=== PATIENT | female | born 1995 ===

== ENCOUNTER 2017-10-26 12:42 | Emergency (ER) | payer MEDICAID ==
[2017-10-26 12:58] VITALS: PULSE 78; O2SAT 99
[2017-10-26] MEDS ORDERED: Clindamycin 600mg/50ml D5W 600 MG/50 ML VIAL IVPB ONE (13:26)
[2017-10-26 14:11] LABS: BASO # 0.1 K/uL (0.0-0.2); BASO % 0.6 % (0.0-2.0); EOS # 0.2 K/uL (0.0-0.7); EOS % 1.4 % (0.0-4.0); LYMPH # 3.1 K/uL (1.0-4.3); LYMPH % 28.6 % (20.0-40.0); MEAN CELL VOLUME 85.5 fl (81.0-99.0); MEAN CORPUSCULAR HEMOGLOBIN 29.9 pg (27.0-31.0); MEAN PLATELET VOLUME 8.8 fl (7.2-11.7); MONO # 0.9 K/uL (0.0-0.8); MONO % 8.8 % (0.0-10.0); NEUT # 6.5 K/uL (1.8-7.0); NEUT % 60.6 % (50.0-75.0); NRBC % 0.1 % (0.0-0.0); RBC 4.68 Mil/uL (3.80-5.20); RED CELL DISTRIBUTION WIDTH 13.3 % (11.5-14.5); WHITE BLOOD COUNT 10.7 K/uL (4.8-10.8)
[2017-10-26 14:31] LABS: ALB/GLOB RATIO 1.1 (1.0-2.1); ALBUMIN 4.7 g/dL (3.5-5.0); ALT/SGPT 23 U/L (9-52); AST/SGOT 29 U/L (14-36); BLOOD UREA NITROGEN 8 mg/dl (7-17); CALCIUM 9.5 mg/dL (8.4-10.2); GFR NON-AFRICAN AMERICAN > 60
[2017-10-26] MEDS ORDERED: Iohexol 300 100 ML IJ ONE (14:53)
[2017-10-26] MEDS ORDERED: Sodium Chloride 0.9% 50 ML IV ONE (14:53)
--- NOTE | 2017-10-26 15:15 | ED PDOC ---
HPI: Dental Pain/Injury Time Seen by Provider: 10/26/17 13:05 Chief Complaint (Nursing): Dental Pain Chief Complaint (Provider): Dental pain History Per: Patient History/Exam Limitations: no limitations Onset/Duration Of Symptoms: Days (x2) Current Symptoms Are (Timing): Still Present Additional Complaint(s): Maranda Garces is a 22 year old female, with no significant past medical history, who presents to the emergency department for evaluation of right sided dental pain associated with right sided facial swelling onset for x2 days. Patient reports pain, erythema and tactile fever. She denies any other medical complaints. PMD: None provided. Past Medical History Reviewed: Historical Data, Nursing Documentation, Vital Signs Vital Signs: Last Vital Signs Temp 100.2 F H 10/26/17 12:56 Pulse 78 10/26/17 12:56 Resp 16 10/26/17 12:56 BP 138/77 10/26/17 12:56 Pulse Ox 99 10/26/17 12:56 - Medical History PMH: Anemia, Anxiety, Asthma, Gastritis - Family History Family History: States: Unknown Family Hx - Social History Current smoker - smoking cessation education provided: No Alcohol: Social Drugs: Cannabis - Immunization History Hx Tetanus Toxoid Vaccination: No Hx Influenza Vaccination: Yes Hx Pneumococcal Vaccination: No - Home Medications Home Medications: Ambulatory Orders Medication Instructions Recorded Cetirizine HCl [Zyrtec Allergy] 20 mg PO PRN PRN 10/17/15 Famotidine [Pepcid] 20 mg PO BID #10 tab 02/22/16 Ondansetron ODT [Zofran ODT] 4 mg PO Q8 PRN #8 02/22/16 Ciprofloxacin [Cipro] 500 mg PO BID #14 tab 03/28/16 Dicyclomine [Dicyclomine HCl] 10 mg PO QID #30 cap 03/28/16 Ondansetron [Zofran] 4 mg PO Q8H #9 tab 03/28/16 metroNIDAZOLE [Flagyl] 500 mg PO TID #21 tab 03/28/16 Clindamycin [Cleocin] 1 tab PO Q6 7 Days #28 cap 10/26/17 oxyCODONE/Acetaminophen [Percocet 1 tab PO Q6 #10 tab 10/26/17 5/325 mg Tab] - Allergies Allergies/Adverse Reactions: Allergies Allergy/AdvReac Type Severity Reaction Status Date / Time yordan Allergy RASH Verified 10/17/15 12:38 Penicillins Allergy RASH Verified 10/17/15 12:37 pineapple Allergy RASH Verified 10/17/15 12:38 walnuts Allergy RASH Uncoded 10/17/15 12:39 Review of Systems ROS Statement: Except As Marked, All Systems Reviewed And Found Negative Constitutional: Positive for: Fever (tactile) ENT: Positive for: Mouth Pain (dental pain ), Other (right sided facial swelling ) Physical Exam - Reviewed Nursing Documentation Reviewed: Yes Vital Signs Reviewed: Yes - Physical Exam Appears: Positive for: No Acute Distress Head Exam: Positive for: ATRAUMATIC, NORMOCEPHALIC Skin: Positive for: Normal Color, Warm, Dry Eye Exam: Positive for: Normal appearance, EOMI, PERRL ENT: Positive for: Other (Poor dentition with missing tooth to the right maxillar premoral area with surrounding gingival erythema, swelling and tenderness. Right sided facial swelling with mild erythema extending to the right infraorbital area) Neck: Positive for: Painless ROM Respiratory: Negative for: Respiratory Distress Extremity: Positive for: Normal ROM (upper and lower extremities). Negative for : Deformity, Swelling Neurologic/Psych: Positive for: Alert, Oriented, Gait (steady). Negative for: Motor/Sensory Deficits - Laboratory Results Result Diagrams: 10/26/17 14:00 10/26/17 14:00 - ECG O2 Sat by Pulse Oximetry: 99 (RA) Pulse Ox Interpretation: Normal Medical Decision Making Medical Decision Making: Time: 13:05 Initial Impression: dental pain Initial Plan: --Maxillofacial w/contrast [CT] --CMP --CBC w/ differential --Clindamycin 600mg in 50 ml IVPB --Toradol 15 mg IVP --Blood culture --Reevaluation 15:[address] FINDINGS: NASAL BONES: The nasal bones are intact. ORBITS: Both globes are symmetric. No evidence for orbital cellulitis or subperiosteal abscess. PARANASAL SINUSES/ MASTOIDS: There is moderate polypoid mucosal thickening in the right maxillary sinus, moderate mucoperiosteal thickening in the ethmoid air cells and a retention cyst /polyp in the left sphenoid chamber. The mastoid air cells are clear. MAXILLA: There is soft tissue swelling and subcutaneous fat stranding overlying the right maxilla and mandible. MANDIBLE/ TEMPOROMANDIBULAR JOINTS: Unremarkable. SKULL BASE: Unremarkable. TEMPORAL BONES: Middle ears and mastoid grossly unremarkable. OTHER FINDINGS: There is periapical lucency in the right 1st maxillary molar. There are also periapical abscesses in the left mandibular molar. IMPRESSION: Findings are most compatible with right facial cellulitis. No evidence for abscess or drainable fluid collection. Suspect acute right maxillary sinusitis, acute sphenoid sinusitis and chronic mucoperiosteal thickening in the ethmoid air cells. Periapical abscess in the right first maxillary molar. Scribe Attestation: Documented by Caleb Jensen, acting as a scribe for Carrie Gonzalez PA-C Provider Scribe Attestation: All medical record entries made by the Scribe were at my direction and personally dictated by me. I have reviewed the chart and agree that the record accurately reflects my personal performance of the history, physical exam, medical decision making, and the department course for this patient. I have also personally directed, reviewed, and agree with the discharge instructions and disposition. Disposition - Clinical Impression Clinical Impression: Dental abscess, Facial cellulitis - Patient ED Disposition Is Patient to be Admitted: No Doctor Will See Patient In The: Office Counseled Patient/Family Regarding: Studies Performed - Disposition Referrals: [facility] [Outside] Disposition: Routine/Home Disposition Time: 16:18 Condition: IMPROVED Prescriptions: Clindamycin [Cleocin] 1 tab PO Q6 7 Days #28 cap oxyCODONE/Acetaminophen [Percocet 5/325 mg Tab] 1 tab PO Q6 #10 tab Instructions: Tooth Abscess (DC), Cellulitis (Skin Infection), Adult (DC) Forms: [employer] (Arabic), [facility] ED School/Work Excuse
--- NOTE | 2017-10-26 15:57 | CT ---
Date of service: 10/26/2017 PROCEDURE: CT MAXILLOFACIAL BONES WITH CONTRAST HISTORY: dental infection, right maxillary premolar COMPARISON: None. TECHNIQUE: Contiguous axial CT images of the maxillofacial bones were obtained following administration of IV contrast. Coronal and sagittal reformats were generated. Intravenous contrast Dose: 90 mL Omnipaque 300 Radiation dose: Total exam DLP = 821.77 mGy-cm. This CT exam was performed using one or more of the following dose reduction techniques: Automated exposure control, adjustment of the mA and/or kV according to patient size, and/or use of iterative reconstruction technique. FINDINGS: NASAL BONES: The nasal bones are intact. ORBITS: Both globes are symmetric. No evidence for orbital cellulitis or subperiosteal abscess. PARANASAL SINUSES/ MASTOIDS: There is moderate polypoid mucosal thickening in the right maxillary sinus, moderate mucoperiosteal thickening in the ethmoid air cells and a retention cyst/polyp in the left sphenoid chamber. The mastoid air cells are clear. MAXILLA: There is soft tissue swelling and subcutaneous fat stranding overlying the right maxilla and mandible. MANDIBLE/ TEMPOROMANDIBULAR JOINTS: Unremarkable. SKULL BASE: Unremarkable. TEMPORAL BONES: Middle ears and mastoid grossly unremarkable. OTHER FINDINGS: There is periapical lucency in the right 1st maxillary molar. There are also periapical abscesses in the left mandibular molar. IMPRESSION: Findings are most compatible with right facial cellulitis. No evidence for abscess or drainable fluid collection. Suspect acute right maxillary sinusitis, acute sphenoid sinusitis and chronic mucoperiosteal thickening in the ethmoid air cells. Periapical abscess in the right first maxillary molar.
[2017-10-26 16:32] VITALS: BP 128/78; RESP 18; TEMP 99
== END 2017-10-26 16:34 | disposition home or self-care (01) ==
LOC: H.ER 12:42
DX: K04.7 Periapical abscess without sinus (principal); L03.211 Cellulitis of face; Z88.0 Allergy status to penicillin
CPT/HCPCS: 70488; 80053; 81025; 85025; 87040; 96374; 99283; J1885; Q9967

== ENCOUNTER 2018-02-26 13:59 | Emergency (ER) | payer MEDICAID ==
[2018-02-26 14:15] VITALS: RESP 18
[2018-02-26] MEDS ORDERED: Sodium Chloride 0.9% 1,000 ML IV STA ×2 (14:33→16:07)
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
[2018-02-26 15:26] LABS: BASO # 0.1 K/uL (0.0-0.2); BASO % 0.7 % (0.0-2.0); EOS # 0.1 K/uL (0.0-0.7); EOS % 0.7 % (0.0-4.0); HEMOGLOBIN 13.8 g/dL (12.0-16.0); LYMPH # 1.9 K/uL (1.0-4.3); LYMPH % 20.8 % (20.0-40.0); MEAN CELL VOLUME 87.5 fl (81.0-99.0); MEAN CORPUSCULAR HEMOGLOBIN 29.7 pg (27.0-31.0); MEAN CORPUSCULAR HGB CONC 33.9 g/dL (33.0-37.0); MEAN PLATELET VOLUME 9.6 fl (7.2-11.7); MONO # 0.3 K/uL (0.0-0.8); NEUT # 6.7 K/uL (1.8-7.0); NEUT % 74.8 % (50.0-75.0); NRBC % 0.6 % (0.0-0.0); RBC 4.65 Mil/uL (3.80-5.20); RED CELL DISTRIBUTION WIDTH 13.7 % (11.5-14.5)
[2018-02-26 15:34] LABS: ALB/GLOB RATIO 1.2 (1.0-2.1); ALBUMIN 4.7 g/dL (3.5-5.0); ALT/SGPT 24 U/L (9-52); AST/SGOT 29 U/L (14-36); BLOOD UREA NITROGEN 10 mg/dl (7-17); CALCIUM 9.9 mg/dL (8.4-10.2); GFR NON-AFRICAN AMERICAN > 60; LIPASE 38 U/L (23-300)
[2018-02-26 16:32] LABS: BARBITURATES, UR NEGATIVE (NEGATIVE)
--- NOTE | 2018-02-26 16:32 | CT ---
Date of service: 02/26/2018 PROCEDURE: CT HEAD WITHOUT CONTRAST. HISTORY: headache COMPARISON: None available. TECHNIQUE: Axial computed tomography images were obtained through the head/brain without intravenous contrast. Radiation dose: Total exam DLP = 982.29 mGy-cm. This CT exam was performed using one or more of the following dose reduction techniques: Automated exposure control, adjustment of the mA and/or kV according to patient size, and/or use of iterative reconstruction technique. FINDINGS: HEMORRHAGE: No intracranial hemorrhage. BRAIN: No mass effect or edema. No atrophy or chronic microvascular ischemic changes. VENTRICLES: Unremarkable. No hydrocephalus. CALVARIUM: Unremarkable. PARANASAL SINUSES: Unremarkable as visualized. No significant inflammatory changes. MASTOID AIR CELLS: Unremarkable as visualized. No inflammatory changes. OTHER FINDINGS: None. IMPRESSION: No acute intracranial pathology.
[2018-02-26 16:37] LABS: BENZODIAZEPINES, UR NEGATIVE (NEGATIVE); OPIATES, UR NEGATIVE (NEGATIVE); PHENCYCLIDINE, UR NEGATIVE (NEGATIVE)
[2018-02-26 17:07] VITALS: BP 108/59; PULSE 63; TEMP 97.7
[2018-02-26 17:28] VITALS: O2SAT 99
--- NOTE | 2018-02-26 23:53 | CARD ---
APPROVED REPORT Date of service: 02/26/2018 EKG Measurement Heart [id number] <Conclusion> Normal sinus rhythm Normal ECG
== END 2018-02-26 17:36 | disposition home or self-care (01) ==
LOC: H.ER 13:59
DX: R11.2 Nausea with vomiting, unspecified (principal); R10.9 Unspecified abdominal pain; F19.10 Other psychoactive substance abuse, uncomplicated; J45.909 Unspecified asthma, uncomplicated; Z79.899 Other long term (current) drug therapy; Z88.0 Allergy status to penicillin
CPT/HCPCS: 70450; 80053; 80320; 80324; 80345; 80346; 80349; 80353; 80358; 80361; 81025; 83690; 83992; 85025; 93005; 96374; 99284; J2405; J7030

== ENCOUNTER 2018-04-15 05:12 | Emergency (ER) | payer MEDICAID, OTHER ==
--- NOTE | 2018-04-15 06:49 | ED PDOC ---
HPI: CCC, URI, Sore Throat Time Seen by Provider: 04/15/18 06:06 Chief Complaint (Nursing): ENT Problem Chief Complaint (Provider): ENT Problem History Per: Patient History/Exam Limitations: no limitations Associated Symptoms: Fever, Sore Throat, Vomiting Additional Complaint(s): 22 years old female presents to ER for evaluation after she woke up with bodyaches, sore throat, difficulty swallowing and fever of 100.1. Patient reports she tried to take medication but vomited. She states abdominal pain is no longer there but still feels nauseated. Patient reports she has been around a lot of sick people recently. PMD: Etta Past Medical History Reviewed: Historical Data, Nursing Documentation, Vital Signs Vital Signs: Last Vital Signs Temp 98.4 F 04/15/18 05:16 Pulse 87 04/15/18 05:16 Resp 18 04/15/18 05:16 BP 141/78 04/15/18 05:16 Pulse Ox 95 04/15/18 05:16 - Medical History PMH: Anemia, Anxiety, Asthma, Gastritis - Surgical History Surgical History: No Surg Hx - Family History Family History: States: Unknown Family Hx - Immunization History Hx Tetanus Toxoid Vaccination: No Hx Influenza Vaccination: Yes Hx Pneumococcal Vaccination: No - Home Medications Home Medications: Ambulatory Orders Medication Instructions Recorded Famotidine [Pepcid] 20 mg PO DAILY PRN #6 tab 02/26/18 Ondansetron [Zofran] 4 mg PO Q8H PRN #6 tab 02/26/18 Naproxen [Naprosyn] 500 mg PO BID PRN #15 tablet 04/15/18 - Allergies Allergies/Adverse Reactions: Allergies Allergy/AdvReac Type Severity Reaction Status Date / Time yordan Allergy RASH Verified 02/26/18 14:13 Penicillins Allergy RASH Verified 02/26/18 14:13 pineapple Allergy RASH Verified 02/26/18 14:13 walnuts Allergy RASH Uncoded 02/26/18 14:13 Review of Systems ROS Statement: Except As Marked, All Systems Reviewed And Found Negative Constitutional: Positive for: Fever, Other (Bodyaches) ENT: Positive for: Throat Pain Gastrointestinal: Positive for: Nausea, Vomiting. Negative for: Abdominal Pain Physical Exam - Reviewed Nursing Documentation Reviewed: Yes Vital Signs Reviewed: Yes - Physical Exam Appears: Positive for: Well, No Acute Distress Head Exam: Positive for: ATRAUMATIC, NORMOCEPHALIC Skin: Positive for: Normal Color, Warm, Dry Eye Exam: Positive for: Normal appearance, EOMI, PERRL ENT: Positive for: Tonsillar Swelling (enlarged bilaterally) Neck: Negative for: Normal ((+) tender lymphadenopathy) Cardiovascular/Chest: Positive for: Regular Rate, Rhythm. Negative for: Murmur Respiratory: Positive for: Normal Breath Sounds. Negative for: Respiratory Distress Gastrointestinal/Abdominal: Positive for: Normal Exam, Soft. Negative for: Tenderness Back: Positive for: Normal Inspection. Negative for: L CVA Tenderness, R CVA Tenderness Extremity: Positive for: Normal ROM. Negative for: Pedal Edema, Swelling Neurological/Psych: Positive for: Awake, Alert, Oriented (x3) - ECG O2 Sat by Pulse Oximetry: 95 (RA) Pulse Ox Interpretation: Normal Medical Decision Making Medical Decision Making: Time: 627 A/P: Viral pharyngitis vs. strep pharyngitis --Toradol 60 mg IM --Zofran 4 mg PO --Rapid Strep Group A Antigen 0700 --Will endorse to Dr. Gonzalez pending workup completion and re-eval Scribe Attestation: Documented by Bren Warner, acting as a scribe for Niels Plunkett MD. Provider Scribe Attestation: All medical record entries made by the Scribe were at my direction and personally dictated by me. I have reviewed the chart and agree that the record accurately reflects my personal performance of the history, physical exam, medical decision making, and the department course for this patient. I have also personally directed, reviewed, and agree with the discharge instructions and disposition. Disposition - Clinical Impression Clinical Impression: Pharyngitis - Patient ED Disposition Is Patient to be Admitted: Transfer of Care - Disposition Referrals: [facility] [Outside] Disposition: Transfer of Care Disposition Time: 07:00 Condition: IMPROVED Prescriptions: Naproxen [Naprosyn] 500 mg PO BID PRN #15 tablet PRN Reason: Pain, Moderate (4-7) Instructions: Viral Pharyngitis Forms: [employer] (Monegasque), [facility] ED School/Work Excuse Patient Signed Over To: Ana Paula Gonzalez Handoff Comments: pending workup completion and re-eval
--- NOTE | 2018-04-15 07:30 | ED PDOC ---
- ECG O2 Sat by Pulse Oximetry: 95 (RA) Pulse Ox Interpretation: Normal Medical Decision Making Medical Decision Makinyo female with sore throat, fever Patient signed out to me pending rapid strep, reassessment. 744 Rapid strep negative. Patient given Decadron 10mg IM. On reassessment, patient reports feeling improvement and is stable for discharge home. Patient given Naproxen to take as needed for pain relief. Scribe Attestation: Documented by Roseline Steel, acting as a scribe for Ana Paula Gonzalez MD. Provider Scribe Attestation: All medical record entries made by the Scribe were at my direction and person ally dictated by me. I have reviewed the chart and agree that the record accurately reflects my personal performance of the history, physical exam, medical decision making, and the department course for this patient. I have also personally directed, reviewed, and agree with the discharge instructions and disposition. Disposition - Clinical Impression Clinical Impression: Pharyngitis - POA Present On Arrival: None - Disposition Referrals: [facility] [Outside] Disposition: Routine/Home Disposition Time: 07:53 Condition: IMPROVED Prescriptions: Naproxen [Naprosyn] 500 mg PO BID PRN #15 tablet PRN Reason: Pain, Moderate (4-7) Instructions: Viral Pharyngitis Forms: [employer] (Polish), [facility] ED School/Work Excuse
[2018-04-15] MEDS ORDERED: Dexamethasone 4 mg/1 ml IM STA (07:51)
[2018-04-15 08:14] VITALS: BP 132/74; PULSE 84; RESP 14; TEMP 98.5
[2018-04-15 13:30] VITALS: O2SAT 95
== END 2018-04-15 08:00 | disposition home or self-care (01) ==
LOC: H.ER 05:12
DX: J02.9 Acute pharyngitis, unspecified (principal); J45.909 Unspecified asthma, uncomplicated; Z88.0 Allergy status to penicillin
CPT/HCPCS: 81025; 87070; 87430; 96372; 99283; J1100; J1885